=== PATIENT | male | born 1945 | race Caucasian/White ===

== ENCOUNTER 2017-06-05 09:30 | Emergency (ER) | payer OTHER ==
[~2017-06-05] VITALS: Ht 177.8 cm; Wt 102.9 kg
[~2017-06-05 09:30] MED LIST: AMLODIPINE BESY10 MG PO; DELTASONE20 M1 PO; LIPITOR10 MG PO; PEPCID20 MG PO; PEPCID40 MG PO; PREDNISONE20 MG PO; RAPAFLO8 MG PO; ZYRTEC10 M3 PO
[2017-06-05 13:11] VITALS: BP 160/70
== END 2017-06-05 13:14 | disposition home or self-care (01) ==
LOC: EME 09:30
DX: M70.22 Olecranon bursitis, left elbow (principal); I10 Essential (primary) hypertension; N40.0 Benign prostatic hyperplasia without lower urinary tract symptoms
CPT/HCPCS: 73080; 99281; 99284